=== PATIENT | female | born 1990 | race American Indian/Alaskan Native ===

== ENCOUNTER 2020-08-04 18:27 | Observation (INO) | payer OTHER ==
--- NOTE | 2020-08-04 19:18 | Emergency Department Report ---
Blank Doc - Documentation Documentation: 29-year-old F Dominican female with history of migraine headaches with emerge d epartment complaining of and a frontal headache flareup that is not indicative of her previous migraine history. States that headache is way more intense and also beginning to involve her vision which is unusual. No fever chills or sweats no trauma. She reports no nausea vomiting no chest pain or palpitations. Currently she is on no migraine medications. This initial assessment/diagnostic orders/clinical plan/treatment(s) is/are subject to change based on patients health status, clinical progression and re- assessment by fellow clinical providers in the ED. Further treatment and workup at subsequent clinical providers discretion. Patient/guardian urged not to elope from the ED as their condition may be serious if not clinically assessed and managed. Initial orders include: ct and migraine treatment
[2020-08-04] MEDS ORDERED: METOCLOPRAMIDE 10 MG/2 ML INJ IV STA (19:19)
[2020-08-04] MEDS ORDERED: KETOROLAC 30 MG/1 ML INJ IV ONE (19:19)
[2020-08-04] MEDS ORDERED: SODIUM CHLORIDE 0.9% 1000 ML 1,000 ML IV ONE (19:19)
[2020-08-04] MEDS ORDERED: diphenhydrAMINE 50 MG/ML VIAL IV STA (19:19)
--- NOTE | 2020-08-04 20:48 | Cat Scan Report ---
NONENHANCED CT SCAN OF THE HEAD: INDICATION / CLINICAL INFORMATION: 29 years Female; blurred vision, HERRERA.. TECHNIQUE: Routine CT head without contrast. All CT scans at this location are performed using CT dos e reduction for ALARA by means of automated exposure control. COMPARISON: None. FINDINGS: BRAIN / INTRACRANIAL CONTENTS: No acute hemorrhage, mass effect, midline shift, hydrocephalus, or acu te, large territorial infarct. No chronic infarct or focal atrophy. Normal brain volume and ventricul ar/sulcal size for age. No significant white matter abnormality. Right temporal horn tip is slightly asymmetrically larger CRANIOCERVICAL JUNCTION: No significant abnormality. ORBITS: No significant abnormality of visualized orbits. SINUSES / MASTOIDS: No significant abnormality of the visualized paranasal sinuses or mastoid air taylor ls. ADDITIONAL FINDINGS: None. IMPRESSION: No focal mass, hemorrhage, hydrocephalus, or acute, large territorial infarct. Signer Name: Zachariah Cummins MD Signed: 08/04/2020 8:44 PM Workstation Name: [id number]
[2020-08-04 23:42] LABS: Hematocrit 39.5 % (30.3-42.9); Mean Corpuscular HGB Conc 33 % (30-34); Mean Corpuscular Volume 83 fl (79-97); Platelet Count 329 K/mm3 (140-440); Red Blood Count 4.74 M/mm3 (3.65-5.03); Red Cell Distribution Width 15.6 % (13.2-15.2)
[2020-08-04] MEDS ORDERED: HYDROmorphone 1 MG/1 ML INJ IV ONE (23:48)
[2020-08-04] MEDS ORDERED: methylPREDNISolone Sod Succinate 125 MG/2 ML INJ IV ONE (23:49)
--- NOTE | 2020-08-04 23:53 | Emergency Department Report ---
ED Headache HPI - General Chief Complaint: Headache Stated Complaint: BLURRED VISION Time Seen by Provider: 08/04/20 23:47 Source: patient Exam Limitations: no limitations - History of Present Illness Initial Comments: Patient is a 29-year-old female that presents emergency room with complaints of headache. Patient states her headaches been going on for 3 days. Patient states she is also having blurry vision. Patient dates her blurry vision started 3 days ago. Patient states that she has a history of migraines. Patient states is her worst migraines of her head. Patient denies trauma. Patient denies fall. Patient denies head injury. Patient states she had an 3 weeks ago. Patient states she had a surgical and she had for 5 days of bleeding after the . Patient denies fever and chills. Patient denies chest pain. Patient denies nausea and vomiting. Patient complains of light and sound sensitivity. Patient denies recent travel. Patient denies recent international travel. Patient denies exposure to the novel coronavirus. Patient denies sick contacts. Patient denies fever and chills. Patient denies cough. Patient denies di arrhea. Patient denies coming in contact with anybody with symptoms of the novel coronavirus. Timing/Duration: constant, increasing Quality: severe, constant, sharp, stabbing, throbbing Head Injury Location: frontal Recent Head Trauma: occasional headaches Modifying Factors: improves with: movement, rest Associated Symptoms: vision changes. denies: confusion, fatigue, facial pain, fever/chills, flushing, loss of consciousness, nausea/vomiting, nasal congestion, nasal drainage, numbness in legs/feet, rash, seizures, sinus infection, stiff neck, weakness Allergies/Adverse Reactions: Allergies No Known Allergies Allergy (Verified 08/05/20 01:00) ED Review of Systems ROS: Stated complaint: BLURRED VISION Other details as noted in HPI Constitutional: denies: chills, fever Eyes: denies: eye pain, eye discharge, vision change ENT: denies: ear pain, throat pain Respiratory: denies: cough, shortness of breath, wheezing Cardiovascular: denies: chest pain, palpitations Endocrine: no symptoms reported Gastrointestinal: denies: abdominal pain, nausea, diarrhea Genitourinary: denies: urgency, dysuria, discharge Musculoskeletal: denies: back pain, joint swelling, arthralgia Skin: denies: rash, lesions Neurological: denies: headache, weakness, paresthesias Psychiatric: denies: anxiety, depression Hematological/Lymphatic: denies: easy bleeding, easy bruising ED Past Medical Hx - Past Medical History Previous Medical History?: Yes Hx Headaches / Migraines: Yes - Surgical History Past Surgical History?: No - Family History Family history: no significant - Social History Smoking Status: Current Every Day Smoker Substance Use Type: None ED Physical Exam - General Limitations: No Limitations General appearance: alert, in no apparent distress - Head Head exam: Present: atraumatic, normocephalic - Eye Eye exam: Present: normal appearance, PERRL Pupils: Present: normal accommodation - ENT ENT exam: Present: mucous membranes moist - Neck Neck exam: Present: normal inspection. Absent: tenderness, meningismus, full ROM - Respiratory Respiratory exam: Present: normal lung sounds bilaterally. Absent: respiratory distress, wheezes, rales - Cardiovascular Cardiovascular Exam: Present: regular rate, normal rhythm. Absent: systolic murmur, diastolic murmur, rubs, gallop - GI/Abdominal GI/Abdominal exam: Present: soft, normal bowel sounds. Absent: distended, tenderness, guarding - Extremities Exam Extremities exam: Present: normal inspection - Back Exam Back exam: Present: normal inspection - Neurological Exam Neurological exam: Present: alert, oriented X3 - Psychiatric Psychiatric exam: Present: normal affect, normal mood - Skin Skin exam: Present: warm, dry, intact, normal color. Absent: rash ED Course Vital Signs 08/04/20 08/04/20 08/04/20 19:02 19:18 21:28 Temperature 98 F 98.3 F Pulse Rate 78 75 Respiratory 18 20 18 Rate Blood Pressure 149/96 Blood Pressure 164/98 [Right] O2 Sat by Pulse 100 100 Oximetry 08/04/20 08/05/20 21:58 00:09 Temperature 98.2 F Pulse Rate 89 Respiratory 18 18 Rate Blood Pressure Blood Pressure 120/78 [Right] O2 Sat by Pulse 98 Oximetry - Reevaluation(s) Reevaluation #1: I discussed all results with patient. I discussed plan of care with patient. Patient agrees with plan of care and admission. Patient to be admitted to the hospitalist service. 08/05/20 00:42 - Consultations Consultation #1: Neurology saw the patient. The neurologist recommendations are admission, MRI. 08/05/20 00:41 Consultation #2: Hospitalist consulted for admission. Hospitalist to admit patient. 08/05/20 00:49 ED Medical Decision Making - Lab Data Result diagrams: 08/04/20 23:01 08/04/20 23:01 - Radiology Data Radiology results: report reviewed, image reviewed NONENHANCED CT SCAN OF THE HEAD: INDICATION / CLINICAL INFORMATION: 29 years Female; blurred vision, HERRERA.. TECHNIQUE: Routine CT head without contrast. All CT scans at this location are performed using CT dose reduction for ALARA by means of automated exposure control. COMPARISON: None. FINDINGS: BRAIN / INTRACRANIAL CONTENTS: No acute hemorrhage, mass effect, midline shift, hydrocephalus, or acute, large territorial infarct. No chronic infarct or focal atrophy. Normal b rain volume and ventricular/sulcal size for age. No significant white matter abnormality. Right temporal horn tip is slightly asymmetrically larger CRANIOCERVICAL JUNCTION: No significant abnormality. ORBITS: No significant abnormality of visualized orbits. SINUSES / MASTOIDS: No significant abnormality of the visualized paranasal sinuses or mastoid air cells. ADDITIONAL FINDINGS: None. IMPRESSION: No focal mass, hemorrhage, hydrocephalus, or acute, large territorial infarct. - Medical Decision Making Patient is a 29-year-old female that presents emergency room for severe intractable headache. Patient has history of migraines but never this bad. Patient had an 3 weeks ago. Patient's headaches been going on for 3 days and worsening. Patient also complained of blurry vision. Patient had labs done which were essentially unremarkable. Patient CT his head was negative. Based on the patient's severity of her headache, I consulted the neurologist. Neurology recommends MRI and admission. Patient admitted to the hospitalist service for further evaluation and treatment. - Differential Diagnosis Headache, intractable pain, photophobia, MS, SAH. Critical Care Time: Yes Critical care time in (mins) excluding proc time.: 35 Critical care attestation.: If time is entered above; I have spent that time in minutes in the direct care of this critically ill patient, excluding procedure time. Critical Care Time: 35 minutes ED Disposition Clinical Impression: Photophobia, Blurry vision, Severe headache Headache Qualifiers: Headache type: unspecified Headache chronicity pattern: acute headache Intractability: intractable Qualified Code(s): R51.9 - Headache, unspecified Disposition: DC-09 OP ADMIT IP TO THIS HOSP Is pt being admited?: Yes Does the pt Need Aspirin: No Condition: Critical Time of Disposition: 00:42
[2020-08-05 00:11] LABS: Alanine Aminotransferase 9 units/L (7-56); Albumin 4.7 g/dL (3.9-5); BUN/Creatinine Ratio 13; Blood Urea Nitrogen 13 mg/dL (7-17); Calcium 9.3 mg/dL (8.4-10.2); Hemolysis Index 6
--- NOTE | 2020-08-05 00:37 | Emergency Department Report ---
ED Headache [facility] - General Chief Complaint: Headache Stated Complaint: BLURRED VISION Time Seen by Provider: 08/04/20 23:47 Source: patient - History of Present Illness Allergies/Adverse Reactions: Allergies No Known Allergies Allergy (Unverified 08/04/20 19:02) ED Review of Systems ROS: Stated complaint: BLURRED VISION Other details as noted in HPI [facility] Consult Services Stat Consult Date of Service: 08/05/2020 00:17:47 Impression: complex MIgraine Comments/Sign-Out: The patient has A bad headache for the last three days with blurry vision up close. Her neurologic examination is nonfocal. I will suggest admission for a brain MRI. If the symptoms do not resolve then spinal tap may be indicated to look at the opening pressure. CT HEAD: Showed No Acute Hemorrhage or Acute Core Infarct Metrics: [facility] Notification Time: 08/05/2020 00:15:27 Stamp Time: 08/05/2020 00:17:47 Video Start Time: 08/05/2020 00:23:45 Video End Time: 08/05/2020 00:36:27 Our recommendations are outlined below. Imaging Studies: MRI Head Disposition: Neurology Follow Up Recommended Sign Out: Discussed with Emergency Department Provider Chief Complaint: HEADACHE , BLURRY VISION History of Present Illness: Patient is a 29 year old Female. 29-year-old female with past medical history significant for migraines and asthma not on any antiplatelets on anticoagulants. She has been having frequent headaches over the last one week. She has had discontinuous headache for the last three days. The headaches are described as moderate in intensity, global without any nausea vomiting but she has phono and photophobia. She also states that she cannot see anything up close but her distant vision is good. The start ed in the last three days. There is no history of any head or neck injuries. In the last month she lost about 10 pounds because she stopped eating as she wanted to lose weight. No history of any head injuries, fever, cough, cold, rash is noted. No neck stiffness is noted. She denies having any focal weakness or numbness in the extremities. She does not have any speech deficits. She has never had so symptoms before. CAT scan of the head is negative. She needs to be admitted for further workup. Past Medical History: There is NO history of Hypertension There is NO history of Diabetes Mellitus There is NO history of Hyperlipidemia There is NO history of Atrial Fibrillation There is NO history of Coronary Artery Disease There is NO history of Stroke Anticoagulant use: No Antiplatelet use: No Examination: BP(120/78), Pulse(89), Blood Glucose(79) 1A: Level of Consciousness - Alert; keenly responsive + 0 1B: Ask Month and Age - Both Questions Right + 0 1C: Blink Eyes & Squeeze Hands - Performs Both Tasks + 0 2: Test Horizontal Extraocular Movements - Normal + 0 3: Test Visual Smith - No Visual Loss + 0 4: Test Facial Palsy (Use Grimace if Obtunded) - Normal symmetry + 0 5A: Test Left Arm Motor Drift - No Drift for 10 Seconds + 0 5B: Test Right Arm Motor Drift - No Drift for 10 Seconds + 0 6A: Test Left Leg Motor Drift - No Drift for 5 Seconds + 0 6B: Test Right Leg Motor Drift - No Drift for 5 Seconds + 0 7: Test Limb Ataxia (FNF/Heel-Roberto) - No Ataxia + 0 8: Test Sensation - Normal; No sensory loss + 0 9: Test Language/Aphasia - Normal; No aphasia + 0 10: Test Dysarthria - Normal + 0 11: Test Extinction/Inattention - No abnormality + 0 NIHSS Score: 0 Patient/Family was informed the Neurology Consult would happen via TeleHealth consult by way of interactive audio and video telecommunications and consented to receiving care in this manner. Due to the immediate potential for life-threatening deterioration due to underlying acute neurologic illness, I spent 30 minutes providing critical care. This time includes time for face to face visit via telemedicine, review of medical records, imaging studies and discussion of findings with providers, the patient and/or family. Dr Janice Toledo [facility] Case [id number] Constitutional: denies: chills, fever Eyes: denies: eye pain, eye discharge, vision change ENT: denies: ear pain, throat pain Respiratory: denies: cough, shortness of breath, wheezing Cardiovascular: denies: chest pain, palpitations Endocrine: no symptoms reported Gastrointestinal: denies: abdominal pain, nausea, diarrhea Genitourinary: denies: urgency, dysuria, discharge Musculoskeletal: denies: back pain, joint swelling, arthralgia Skin: denies: rash, lesions Neurological: denies: headache, weakness, paresthesias Psychiatric: denies: anxiety, depression Hematological/Lymphatic: denies: easy bleeding, easy bruising ED Past Medical Hx - Past Medical History Previous Medical History?: Yes Hx Headaches / Migraines: Yes - Surgical History Past Surgical History?: No - Social History Smoking Status: Current Every Day Smoker Substance Use Type: None ED Physical Exam - General Limitations: No Limitations General appearance: alert, in no apparent distress ED Course Vital Signs 08/04/20 08/04/20 08/04/20 19:02 19:18 21:28 Temperature 98 F 98.3 F Pulse Rate 78 75 Respiratory 18 20 18 Rate Blood Pressure 149/96 Blood Pressure 164/98 [Right] O2 Sat by Pulse 100 100 Oximetry 08/04/20 08/05/20 21:58 00:09 Temperature 98.2 F Pulse Rate 89 Respiratory 18 18 Rate Blood Pressure Blood Pressure 120/78 [Right] O2 Sat by Pulse 98 Oximetry ED Medical Decision Making - Lab Data Result diagrams: 08/04/20 23:01 08/04/20 23:01 Critical care attestation.: If time is entered above; I have spent that time in minutes in the direct care of this critically ill patient, excluding procedure time. ED Disposition Clinical Impression: Headache Disposition: DC-09 OP ADMIT IP TO THIS HOSP Is pt being admited?: Yes Does the pt Need Aspirin: No Condition: Fair Referrals: PRIMARY CARE, [Primary Care Provider] - 3-5 Days
[2020-08-05] MEDS ORDERED: MAGNESIUM HYDROXIDE (MOM) ORAL LIQD UDC PO PRN (00:55)
[2020-08-05] MEDS ORDERED: MORPHINE 2 MG/1 ML INJ IV PRN (00:55)
[2020-08-05] MEDS ORDERED: ONDANSETRON 4 MG/2 ML INJ IV PRN (00:55)
--- NOTE | 2020-08-05 01:04 | History and Physical Report ---
History of Present Illness Date of examination: 08/05/20 Date of admission: 08/05/20 00:46 Chief complaint: Headache Blurry Vision History of present illness: 29-year-old female with no significant past medical history except for migraine headaches presented to the emergency room today complaining of headache which has been ongoing for 3 days. She has had associated blurry vision and also indicates that this is the worst headache she has ever had. She denies any neck pain, no fever or chills, no chest pain or shortness of breath, no nausea or vomiting and no diarrhea. Patient had a surgical about 4 weeks ago and has had intermittent vaginal bleeding over the past 5 days. She denies any abdominal pain. Patient denies any sick contacts but she just recently moved to [place] from [place] in the past few months, denies any contact with anyone with COVID- 19. Patient was evaluated by the tele-neurologist and recommendation was to have MRI of the brain done. CT scan of the head done in the emergency room has been unremarkable. Past History Past Medical History: migraines Past Surgical History: Other (D&C) Social history: smoking (Current Daily Smoker) Family history: no significant family history Medications and Allergies Allergies Allergy/AdvReac Type Severity Reaction Status Date / Time No Known Allergies Allergy Verified 08/05/20 01:00 Review of Systems Constitutional: no fever, no chills Eyes: bilateral: blurred vision Ears, nose, mouth and throat: no nasal congestion, no sore throat Cardiovascular: no chest pain, no palpitations Respiratory: no cough, no shortness of breath, no wheezing Gastrointestinal: nausea, vomiting, no abdominal pain, no hematemesis, no BRBPR Genitourinary Female: no pelvic pain, no flank pain, no dysuria, no hematuria Musculoskeletal: no neck pain, no low back pain Integumentary: no rash, no pruritis Neurological: headaches, no confusion Psychiatric: no anxiety, no depression Exam - Constitutional Vitals: Temp Pulse Resp BP Pulse Ox 98.2 F 89 18 120/78 98 08/05/20 00:09 08/05/20 00:09 08/05/20 00:09 08/05/20 00:09 08/05/20 00:09 General appearance: Present: no acute distress, well-nourished - EENT Eyes: Present: PERRL, EOM intact. Absent: scleral icterus ENT: hearing intact, clear oral mucosa, dentition normal - Neck Neck: Present: supple, normal ROM - Respiratory Respiratory effort: normal Respiratory: bilateral: CTA - Cardiovascular Rhythm: regular Heart Sounds: Present: S1 & S2. Absent: gallop, systolic murmur, diastolic murmur, rub - Extremities Extremities: no ischemia, pulses intact, pulses symmetrical, No edema, Full ROM Peripheral Pulses: within normal limits - Abdominal General gastrointestinal: Present: soft, non-tender, non-distended, normal bowel sounds. Absent: mass - Integumentary Integumentary: Present: clear, warm, dry. Absent: rash - Musculoskeletal Musculoskeletal: strength equal bilaterally - Psychiatric Psychiatric: appropriate mood/affect, intact judgment & insight, memory intact, cooperative - Neurologic Neurologic: CNII-XII intact, no focal deficits, moves all extremities Results - Labs CBC & Chem 7: 08/04/20 23:01 08/04/20 23:01 Labs: Abnormal lab results 08/04/20 08/04/20 Range/Units 23:01 23:01 WBC 13.4 H (4.5-11.0) K/mm3 MCH 27 L (28-32) pg RDW 15.6 H (13.2-15.2) % Carbon Dioxide 20 L (22-30) mmol/L Total Protein 8.3 H (6.3-8.2) g/dL Assessment and Plan - Patient Problems (1) Severe headache Current Visit: Yes Status: Acute Plan to address problem: Etiology is unclear. Patient has known history of migraine headaches. We will check MRI of the brain as recommended by the neurologist. (2) Blurry vision Current Visit: Yes Status: Acute Plan to address problem: We will await further input from neurologist. (3) DVT prophylaxis Current Visit: Yes Status: Acute Plan to address problem: Patient placed on subcutaneous Lovenox. (4) Full code status Current Visit: Yes Status: Acute
[2020-08-05] MEDS ORDERED: HYDROmorphone 1 MG/1 ML INJ IV ONE (03:54)
[2020-08-05] MEDS ORDERED: HYDROmorphone 1 MG/1 ML INJ ONE (04:02)
[2020-08-05] MEDS ORDERED: PROMETHAZINE 25 MG TAB PO ONE (04:08)
[2020-08-05] MEDS ORDERED: diphenhydrAMINE 50 MG/ML VIAL IV ONE (04:08)
[2020-08-05] MEDS ORDERED: PROMETHAZINE 25 MG TAB ONE (04:15)
[2020-08-05] MEDS ORDERED: diphenhydrAMINE 50 MG/ML VIAL ONE (04:15)
[2020-08-05] MEDS ORDERED: ASPIRIN 325 MG TAB PO ONE (06:21)
--- NOTE | 2020-08-05 11:31 | Magnetic Resonance Report ---
MR brain wo/w con INDICATION / CLINICAL INFORMATION: 29 years Female; HEADACHE, BLURRY VISION.. TECHNIQUE: Multiplanar, multisequence MR images of the brain were obtained. COMPARISON: None available. FINDINGS: BRAIN / INTRACRANIAL CONTENTS: The motion degrades the image quality despite using a fast acquisition sequences. Additionally, there is susceptibility artifact resulting from the patient's metallic dent al work. However, the visualized brain appears to demonstrate appropriate signal characteristics. The frontal and anterior temporal lobes are obscured by the susceptibility artifact on the diffusion markell ging. Otherwise, there is no clear evidence of acute territorial infarct. The ventricular system is within normal limits in size and configuration. No extra-axial fluid collec tions are identified. The motion particularly degrades the postcontrast sequences. 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 Otherwise, no intracranial enhancing lesions are appreciated. CRANIOCERVICAL JUNCTION: No significant abnormality. VASCULAR FLOW-VOIDS: No significant abnormality. ORBITS: The orbits are obscured by the susceptibility artifact. SINUSES / MASTOIDS: The visualized paranasal sinuses and mastoid air cells are pneumatized. ADDITIONAL FINDINGS: There is prominent nasopharyngeal soft tissues which likely reflects lymphoid hy pertrophy given the patient's age. IMPRESSION: 1. The study is limited by motion and susceptibility artifact. However, there is no MRI evidence of a cute intracranial process. Signer Name: Isiah Nguyen MD Signed: 08/05/2020 11:26 AM Workstation Name: [id number]
--- NOTE | 2020-08-05 14:41 | Event Note ---
Date: 08/05/20 Patient seen and examined c/o cough, headache and RN reported low grade temp MRI/CT head negative any acute findings will order for covid 19 cont supportive care, contact and droplet isolation
[2020-08-05] MEDS: BUTALB/ACETAMINOPHEN/CAFFEINE TAB PO PRN ×2 (16:07→21:18)
--- NOTE | 2020-08-05 17:09 | Consultation ---
History of Present Illness Consult date: 08/05/20 Reason for Consult: severe headache and photophobia History of present illness: This is a comprehensive neurological consultation on Ms. Raven Resendiz who is a very pleasant 29-year-old woman admitted with the symptoms of intractable headache for last 3 days, reported that worse headache in her lifetime, associated with photophobia and right side weakness. She also reported some nervousness in terms of shaking in her both hands but not jerking. She also reported that she had surgical about 3 weeks ago. She reports that her vaginal bleeding is not as bad and is getting better. she had an CT scan of the brain done performed in the emergency room which was reported negative and then she had an MRI of the brain done which was also reported negative although there was some motion artifact as reported. Presently she reports that her headache is 10 out of 10 pain grade scale and it comes and goes type. She denied any go sea or vomiting at this time. Past History Past Medical History: migraines Past Surgical History: Other (D&C) Social history: smoking (Current Daily Smoker) Family history: no significant family history Medications and Allergies Allergies Allergy/AdvReac Type Severity Reaction Status Date / Time No Known Allergies Allergy Verified 08/05/20 01:00 Active Meds: Active Medications Acetaminophen (Tylenol) 650 mg PO Q4H PRN PRN Reason: Pain MILD(1-3)/Fever >100.5 Acetaminophen/Butalbital/Caffeine (Fioricet) 1 tab PO Q4H PRN PRN Reason: Headache Last Admin: 08/05/20 16:07 Dose: 1 tab Documented by: Enoxaparin Sodium (Enoxaparin) 40 mg SUB-Q QDAY@2200 [facility]; Protocol Magnesium Hydroxide (Milk Of Magnesia) 30 ml PO Q4H PRN PRN Reason: Constipation Ondansetron HCl (Zofran) 4 mg IV Q8H PRN PRN Reason: Nausea And Vomiting Sodium Chloride (Sodium Chloride Flush Syringe 10 Ml) 10 ml IV BID [facility] Last Admin: 08/05/20 16:17 Dose: Not Given Documented by: Sodium Chloride (Sodium Chloride Flush Syringe 10 Ml) 10 ml IV PRN PRN PRN Reason: LINE FLUSH Review of Systems All systems: negative (off-and-on severe headache) Physical Examination - Vital Signs Vital Signs: Vital Signs Temp Pulse Resp BP Pulse Ox 98 F 78 18 164/98 100 08/04/20 19:02 08/04/20 19:02 08/04/20 19:02 08/04/20 19:02 08/04/20 19:02 - Physical Exam Narrative exam: Comprehensive Neurological Examinations: Mental status: alert. Fund of knowledge-normal. Affect-appropriate. Recent memory-normal. Remote memory-normal. Attention span-normal. Cognitive function-normal. Thought content/perception-normal Speech-normal Cranial nerves: II Optic: Visual ygtklk-lgpznjfrt-qjffij. Visual field-normal. III Oculomotor: Bilateral-normal IV Trochlear: Bilateral-normal V Trigeminal: Bilateral-normal. Abducens: Bilateral-normal VII Facial: Bilateral-normal VIII Acoustic: trntyxueb-iowcceu-jlgwqa( tested by finger rub) IX Glossopharyngeal/ X Uyphq-fpmdj-onnyyr XI Accessory-normal shoulder shrug XII Ohasecnfxez-zrihtmsxk-pkuloo Eye movements: Rqej-ukuvazxzi-djathh Nystagmus: Bilateral-none Motor: Bulk and contour: Normal Tone: Normal Strength: Head and neck-normal Upper extremities: Right-5/5 Left-5/5 Lower extremities: Right-5/5 Left-5/5 DTRs: Deferred Sensory: Light touch/ppybexbr-bzazeg-iazxbfht - Constitutional General appearance: uncomfortable (due to headache) - EENT EENT: Present: ATNC, PERRL, hearing intact, vision intact - Respiratory Respiratory: Present: chest non-tender - Cardiovascular Cardiovascular: Present: regular rate Extremities: Present: no peripheral edema bilatateraly - Gastrointestinal Gastrointestinal: Present: soft, non-tender - Integumentary Integumentary: Present: normal - Level of Consciousness 1a. Level of Consciousness: alert/keenly responsive - LOC Questions 1b. LOC Questions: answers both correctly - LOC Command 1c. LOC Commands: performs tasks correctly - Best Gaze 2. Best Gaze: normal - Visual 3. Visual: no visual loss - Facial Palsy 4. Facial Palsy: normal symmetrical movement - Motor Arm 5a. Motor Arm Left: no drift 5b. Motor Arm Right: no drift - Motor Leg 6a. Motor Leg Left: no drift 6b. Motor Leg Right: no drift - Limb Ataxia 7. Limb Ataxia: absent - Sensory 8. Sensory: normal - Best Language 9. Best Language: no aphasia - Dysarthria 10. Dysarthria: normal - Extinction and Inattention 11. Extinction/Inattention: no abnormality - Scoring Total Score: 0 Stroke Severity: No Stroke Symptoms Results - Laboratory Findings CBC and BMP: 08/04/20 23:01 08/04/20 23:01 Abnormal Lab Findings: Abnormal Labs 08/04/20 08/04/20 23:01 23:01 WBC 13.4 H MCH 27 L RDW 15.6 H Carbon Dioxide 20 L Total Protein 8.3 H - Diagnostic Findings Additional findings: MRI of brain is reported negative. Assessment and Plan - Patient Problems (1) Intractable migraine without aura Current Visit: Yes Status: Acute Plan to address problem: Plan: 1) Please start her on topiramate 25 mg twice a day 1 week, 50 mg twice a day then after 2) Please use 100% oxygen, 2 L via nasal cannula for 15 minutes every 6 hourly to break the headache cycle 3) Fioricet 12 every 6 hourly as needed for severe headache 4) IV hydration as per primary team 5) Smoking cessation education I discussed at length with the patient regarding her condition and possible treatment options. I have answered multiple questions posed by the patient to her best satisfactions. Patient agreed with the plan. Thank you very much for allowing us in the care of your patient. Please call us if you have any questions. Donovan Canseco MD Tele-neurologist [phone]
--- NOTE | 2020-08-05 17:18 | XRay Report ---
ABDOMEN 3 VIEW(S) INCLUDING CHEST INDICATION / CLINICAL INFORMATION: cough. COMPARISON: None available. FINDINGS: SUPPORT DEVICES: None. HEART / MEDIASTINUM: No significant abnormality. LUNGS / PLEURA: No significant pulmonary or pleural abnormality. No pneumothorax BOWEL: No dilated bowel. FREE AIR / EXTRALUMINAL GAS: None seen. CALCIFICATIONS: No significant abnormal calcifications. SKELETAL STRUCTURES: No significant abnormality. IMPRESSION: 1. No significant abnormality. Signer Name: Yevgeniy Robledo MD Signed: 08/05/2020 5:14 PM Workstation Name: [id number]
[2020-08-05] MEDS: ACETAMINOPHEN 325 MG TAB PO PRN (21:19)
[2020-08-05] MEDS ORDERED: ENOXAPARIN 40 MG/0.4 ML INJ SUB-Q SCH (22:00)
[2020-08-06] MEDS: ACETAMINOPHEN 325 MG TAB PO PRN (01:40)
[2020-08-06] MEDS: TOPIRAMATE TAB 25 MG TAB PO SCH ×2 (01:41→10:40)
[2020-08-06] MEDS: BUTALB/ACETAMINOPHEN/CAFFEINE TAB PO PRN (01:41)
[2020-08-06] MEDS ORDERED: QUEtiapine 25 MG TAB PO ONE (03:05)
[2020-08-06] MEDS ORDERED: MORPHINE 2 MG/1 ML INJ IV PRN (04:38)
[2020-08-06] MEDS ORDERED: NITROGLYCERIN 0.4 MG TAB SUBL SL PRN (04:39)
[2020-08-06 06:03] LABS: Basophils # (Auto) 0.1 K/mm3 (0.0-0.1); Basophils % (Auto) 0.6 % (0.0-1.8); Eosinophils % (Auto) 0.3 % (0.0-4.3); Hemoglobin 11.9 gm/dl (10.1-14.3); Lymphocytes # (Auto) 4.3 K/mm3 (1.2-5.4); Lymphocytes % (Auto) 32.7 % (13.4-35.0); Mean Corpuscular HGB Conc 33 % (30-34); Mean Corpuscular Volume 84 fl (79-97); Monocytes # (Auto) 0.8 K/mm3 (0.0-0.8); Monocytes % (Auto) 6.4 % (0.0-7.3); Platelet Count 282 K/mm3 (140-440); Red Blood Count 4.27 M/mm3 (3.65-5.03); Red Cell Distribution Width 15.1 % (13.2-15.2)
[2020-08-06 06:13] LABS: INR 1.03 (0.87-1.13)
[2020-08-06 06:16] LABS: BUN/Creatinine Ratio 22; Blood Urea Nitrogen 20 mg/dL (7-17); Calcium 8.8 mg/dL (8.4-10.2); Hemolysis Index 4
--- NOTE | 2020-08-06 10:49 | Consultation ---
History of Present Illness Consult date: 08/06/20 Consult reason: other (abnormal ECG) History of present illness: This is a 29-year old F who presents to this hospital with migraine headaches as sociated with visual disturbance. During neurology workup with an MRI, patient developed chest pain. Patient describes chest pain and right sided pain that is reproducible with palpation. Patient denies shortness of breath and denies palpitations. An ECG done is sinus rhythm with non-specific anterior T wave changes. There is no prior ECG available for comparison. Patient has no prior medical history and does not take any medications. A cardiac consultation has been requested for abnormal ECG. Past History Past Medical History: migraines Past Surgical History: Other (D&C) Social history: smoking (Current Daily Smoker) Family history: no significant family history Medications and Allergies Allergies Allergy/AdvReac Type Severity Reaction Status Date / Time No Known Allergies Allergy Verified 08/05/20 01:00 Active Meds: Active Medications Acetaminophen (Tylenol) 650 mg PO Q4H PRN PRN Reason: Pain MILD(1-3)/Fever >100.5 Last Admin: 08/06/20 01:40 Dose: 650 mg Documented by: Acetaminophen/Butalbital/Caffeine (Fioricet) 1 tab PO Q4H PRN PRN Reason: Headache Last Admin: 08/06/20 01:41 Dose: 1 tab Documented by: Enoxaparin Sodium (Enoxaparin) 40 mg SUB-Q QDAY@2200 [facility]; Protocol Last Admin: 08/05/20 21:17 Dose: 40 mg Documented by: Magnesium Hydroxide (Milk Of Magnesia) 30 ml PO Q4H PRN PRN Reason: Constipation Morphine Sulfate (Morphine) 2 mg IV Q4H PRN PRN Reason: Pain, Moderate (4-6) Last Admin: 08/06/20 04:57 Dose: 2 mg Documented by: Nitroglycerin (Nitrostat) 0.4 mg SL .Q5MIN PRN PRN Reason: Chest Pain Last Admin: 08/06/20 10:41 Dose: 0.4 mg Documented by: Ondansetron HCl (Zofran) 4 mg IV Q8H PRN PRN Reason: Nausea And Vomiting Sodium Chloride (Sodium Chloride Flush Syringe 10 Ml) 10 ml IV BID [facility] Last Admin: 08/06/20 10:40 Dose: 10 ml Documented by: Sodium Chloride (Sodium Chloride Flush Syringe 10 Ml) 10 ml IV PRN PRN PRN Reason: LINE FLUSH Last Admin: 08/06/20 04:59 Dose: 10 ml Documented by: Topiramate (Topamax) 25 mg PO Q12HR [facility] Stop: 08/12/20 10:01 Last Admin: 08/06/20 10:40 Dose: 25 mg Documented by: Physical Examination Vital Signs Temp Pulse Resp BP Pulse Ox 98 F 78 18 164/98 100 08/04/20 19:02 08/04/20 19:02 08/04/20 19:02 08/04/20 19:02 08/04/20 19:02 General appearance: no acute distress HEENT: Positive: PERRL Neck: Positive: trachea midline Cardiac: Positive: Reg Rate and Rhythm Lungs: Positive: Normal Breath Sounds Neuro: Positive: Grossly Intact Extremities: Absent: edema Results 08/06/20 05:33 08/06/20 05:33 Cardiac Enzymes 08/06/20 Range/Units 05:33 Lactate Dehydrogenase 155 (91-180) units/L Coagulation 08/06/20 Range/Units 05:33 PT 13.7 (12.2-14.9) Sec. INR 1.03 (0.87-1.13) CBC 08/06/20 Range/Units 05:33 WBC 13.2 H (4.5-11.0) K/mm3 RBC 4.27 (3.65-5.03) M/mm3 Hgb 11.9 (10.1-14.3) gm/dl Hct 36.0 (30.3-42.9) % Plt Count 282 (140-440) K/mm3 Lymph # (Auto) 4.3 (1.2-5.4) K/mm3 [place] # (Auto) 0.8 (0.0-0.8) K/mm3 Eos # (Auto) 0.0 (0.0-0.4) K/mm3 Baso # (Auto) 0.1 (0.0-0.1) K/mm3 Comprehensive Metabolic Panel 08/06/20 Range/Units 05:33 Sodium 141 (137-145) mmol/L Potassium 3.4 L (3.6-5.0) mmol/L Chloride 106.2 (98-107) mmol/L Carbon Dioxide 27 D (22-30) mmol/L BUN 20 H (7-17) mg/dL Creatinine 0.9 (0.6-1.2) mg/dL Glucose 95 (65-100) mg/dL Calcium 8.8 (8.4-10.2) mg/dL Assessment and Plan Abnormal ECG no prior ECG done for comparison Chest pain, musculoskeletal Migraine Will obtain an echocardiogram for cardiac assessment.
[2020-08-06 11:45] VITALS: BP 92/62
[2020-08-06] MEDS ORDERED: KETOROLAC 30 MG/1 ML INJ IV SCH (12:00)
[2020-08-06] MEDS ORDERED: POTASSIUM CHLORIDE ER 20 MEQ TAB PO ONE (14:39)
--- NOTE | 2020-08-06 14:43 | Discharge Summary ---
Providers - Providers Date of Admission: 08/05/20 00:46 Date of discharge: 08/06/20 Attending physician: ERNESTO MONTGOMERY 08/05/20 00:55 Consult to Physician [CONS] Routine Comment: Consulting Provider: IRC TOPETE Physician Instructions: Reason For Exam: MIGRAINE HEADACHE, BLURRY VISION 08/06/20 04:37 Consult to Cardiology [CONS] Routine Consulting Provider: TEODORO KHANNA Reason For Exam: ABNORMAL EKG Primary care physician: [employer] Hospitalization Condition: Critical Hospital course: Discharge diagnosis: Intractable migraine headache w/o aura, ruled out Covid Atypical chest pain, likely musculoskeletal -muscle spasm Abnormal EKG, likely chronic, evaluated by cardiology Disposition: DC-01 TO HOME OR SELFCARE Time spent for discharge: 34 minutes Core Measure Documentation - Palliative Care Palliative Care/ Comfort Measures: Not Applicable - Core Measures Any of the following diagnoses?: none Exam - Physical Exam Narrative exam: GENERAL: well-developed and well-nourished black female lying on bed appeared to be in no discomfort. HEENT: Normocephalic. Atraumatic. No conjunctival congestion or icterus. Patient has moist mucous membranes. NECK: Supple. Trachea midline. CHEST/LUNGS: Clear to auscultated bilaterally, breathing nonlabored. No wheezes crackles or rhonchi. HEART/CARDIOVASCULAR: Regular in rate and rhythm. S1 and S2 positive. ABDOMEN: Abdomen is soft, nontender. Patient has normal bowel sounds. SKIN: There is no rash. Warm and dry. NEURO: No focal motor deficit. Follows command. MUSCULOSKELETAL: No joint effusion or tenderness. EXTRIMITY: No edema, no cyanosis or clubbing. PSYCH: Cooperative. - Constitutional Vitals: Temp Pulse Resp BP Pulse Ox 98.3 F 85 18 92/62 97 08/06/20 11:42 08/06/20 11:42 08/06/20 08:33 08/06/20 11:42 08/06/20 11:42 Plan Activity: advance as tolerated Weight Bearing Status: Weight Bear as Tolerated Diet: low fat, low salt Additional Instructions: Follow-up with neurologist in 1 week Follow up with: PRIMARY CARE, [Primary Care Provider] - 7 Days Prescriptions: Butalb/Acetamin/Caff 50-325-40 [Fioricet 50-325-40] 1 tab PO Q4H PRN #10 tablet PRN Reason: Headache Topiramate [Topamax] 25 mg PO Q12HR #60 tablet
== END 2020-08-06 16:02 | disposition home or self-care (01) ==
LOC: ED 18:27 → 4A 08-05 00:46
PROVIDERS: ADMIT Internal Medicine Geriatric Medicine; ATTEND Internal Medicine
DX: G43.019 Migraine without aura, intractable, without status migrainosus (principal); Z20.828 Contact with and (suspected) exposure to other viral communicable diseases; H53.8 Other visual disturbances; F17.210 Nicotine dependence, cigarettes, uncomplicated; H53.149 Visual discomfort, unspecified; R07.89 Other chest pain; R94.31 Abnormal electrocardiogram [ECG] [EKG]; Z79.899 Other long term (current) drug therapy
CPT/HCPCS: 36415; 70450; 70553; 74022; 80048; 80053; 82728; 83615; 84145; 84484; 85025; 85027; 85379; 85610; 86140; 93005; 93306; 96361; 96372; 96374; 96375; 96376; 99291; 99406; A9577; G0378; J1170; J1200; J1650; J1885; J2270; J2765; J2930; J7030; Q0169; U0003